=== PATIENT | female | born 1960 | race Two or more races ===

== ENCOUNTER → 2016-09-12 | Outpatient (CLI) | payer BC ==
--- NOTE | 2016-09-12 11:43 | KCIC ---
EXAM: Renal sonogram. HISTORY: Hematuria. TECHNIQUE: Sonographic imaging of the kidneys and bladder was performed. COMPARISON: None. FINDINGS: The right kidney measures 11.5 cm [id number] and the left kidney measures 11.8 cm [id number]. No solid or cystic renal lesion is seen. There is no hydronephrosis. The aorta is normal in caliber. The inferior vena cava is patent. The bladder is unremarkable. The ureteral jets are both seen. Incidental note is made of hepatic steatosis. IMPRESSION: 1. Sonographically unremarkable kidneys and bladder. 2. Hepatic steatosis. Electronically signed by: Sydnee Bueno MD (09/12/2016 11:40 AM)
== END | disposition home or self-care (01) ==
LOC: KCIC US 10:39
PROVIDERS: ATTEND Internal Medicine
DX: R31.9 Hematuria, unspecified (principal)
CPT/HCPCS: 76770

== ENCOUNTER → 2016-11-07 | Outpatient (CLI) | payer BC ==
--- NOTE | 2016-11-07 11:22 | KCIC ---
Pelvic ultrasound Clinical Indication:Pelvic pain. History of ovarian cyst. Hysterectomy.. . TRANSABDOMINAL SCAN No obvious findings in the region of the vaginal cuff. Ovaries not visualized. TRANSVAGINAL SCAN Uterus: Surgically absent. Bowel is identified in the region of the vaginal cuff. Right ovary: 2.9 cm long axis. Simple appearing cyst measures 19 mm long axis. Positive blood flow documented. Left ovary: 17 mm long axis. Positive blood flow documented. Small echogenic foci identified compatible with calcifications. Free fluid: None visualized. IMPRESSION: 1. Simple appearing right ovarian cyst. 2. Presumed calcifications in the left ovary. 3. Post hysterectomy. Electronically signed by: Negro Correa MD (11/07/2016 11:18 AM) [facility]
== END | disposition home or self-care (01) ==
LOC: KCIC US 09:02
PROVIDERS: ATTEND Internal Medicine
DX: R10.2 Pelvic and perineal pain (principal); N83.201 Unspecified ovarian cyst, right side; Z90.710 Acquired absence of both cervix and uterus
CPT/HCPCS: 76830; 76856

== ENCOUNTER → 2017-04-10 | Outpatient (CLI) | payer BC ==
--- NOTE | 2017-04-10 11:31 | KCIC ---
Bilateral digital screening mammogram History: Annual screening mammography Comparison: March 15, 2016, March 27, 2012 Findings: Breast Tissue Density B :There are scattered areas of fibroglandular density. Bilateral digital mammogram images are obtained with CAD. No suspicious masses, architectural distortion, or grouped microcalcifications are identified. Impression: Negative exam. Recommend screening mammogram in one year. BI-RADS Category 1: Negative. PQRS compliance statement - Patient information was entered into a reminder system with a target due date for the next mammogram. Electronically signed by: Lucía Brasher MD (04/10/2017 11:28 AM) [id number]
--- NOTE | 2017-04-10 11:57 | KCIC ---
Clinical Indication: Postmenopausal screening. Hyperthyroidism. Technique: Bone Densitometry was performed with dual photon absorption of the lumbar spine and proximal left femur. This is a baseline exam. Findings: Lumbar Spine: Bone density is 0.998 g/cm2 for L1-L4. T-Score is -0.4 and Z-score 0.9. Age-matched percentage is 111 %. Left Femur Total: Bone density is 0.862 g/cm2. T-Score is -0.7 and Z-score 0.2. Age-matched percentage is 102%. Impression: 1. Normal bone mineral density within the lumbar spine. 2. Normal bone mineral density in the left hip. Electronically signed by: Buzz Carter MD (04/10/2017 11:54 AM) [id number]
== END | disposition home or self-care (01) ==
LOC: KCIC DEXA 10:19
PROVIDERS: ATTEND Internal Medicine
DX: Z12.31 Encounter for screening mammogram for malignant neoplasm of breast (principal); Z13.820 Encounter for screening for osteoporosis; E05.90 Thyrotoxicosis, unspecified without thyrotoxic crisis or storm; Z78.0 Asymptomatic menopausal state
CPT/HCPCS: 77080; G0202; 77067

== ENCOUNTER → 2017-05-01 | Outpatient (CLI) | payer BC, MEDICARE | END | disposition home or self-care (01) | LOC: KCIC MRI 08:20 | DX: S43.431A Superior glenoid labrum lesion of right shoulder, initial encounter (principal); M12.811 Other specific arthropathies, not elsewhere classified, right shoulder; X58.XXXA Exposure to other specified factors, initial encounter; M25.411 Effusion, right shoulder; Y93.89 Activity, other specified; Y92.89 Other specified places as the place of occurrence of the external cause; Y99.8 Other external cause status | CPT/HCPCS: 73221 ==

== ENCOUNTER → 2018-04-23 | Outpatient (CLI) | payer BC ==
--- NOTE | 2018-04-23 12:08 | KCIC ---
Bilateral digital screening mammograms: Reason for examination: Routine screening. Comparison is made to previous studies dated 04/10/2017, 03/15/2016 and 04/14/2014. Interpretation was made with the benefit of CAD. The skin and nipples show no abnormalities. No abnormal axillary lymph nodes are seen. The breast parenchyma shows scattered fibroglandular density. (Breast density: Category B.) There continues be some asymmetric parenchyma at the 10:00 C position of the right breast which is stable. There are no new dominant masses, suspicious calcifications or architectural distortions. Impression: No evidence of malignancy. Recommend routine screening. BI-RADS Category 2: Benign. "Our facility is accredited by the [employer] Mammography [employer]." This patient's information has been entered into a reminder system for the patient to be notified with the results of her examination and a target date for the next mammogram. Electronically signed by: Teetee Santamaria MD (04/23/2018 12:04 PM) [id number]
== END | disposition home or self-care (01) ==
LOC: KCIC MAMMO 10:59
PROVIDERS: ATTEND Physician Assistant Surgical
DX: Z12.31 Encounter for screening mammogram for malignant neoplasm of breast (principal)
CPT/HCPCS: 77067

== ENCOUNTER → 2019-04-21 | Outpatient (CLI) | payer BC, MEDICARE ==
--- NOTE | 2019-04-21 13:34 | KCIC ---
Bilateral digital screening mammograms: Reason for examination: Routine screening. Comparison is made to previous studies dated 04/23/2018 and 04/10/2017. Interpretation was made with the benefit of CAD. The skin and nipples show no abnormalities. No abnormal axillary lymph nodes are seen. The breast parenchyma shows scattered fibroglandular density. (Breast density: Category B.) There continues to be some asymmetric parenchyma in the posterior lateral right breast which is stable. There are no new dominant masses, suspicious calcifications or architectural distortions. Impression: No evidence of malignancy. Recommend routine screening. BI-RADS Category 2: Benign. "Our facility is accredited by the [employer] Mammography Program." This patient's information has been entered into a reminder system for the patient to be notified with the results of her examination and a target date for the next mammogram. Electronically signed by: Teetee Santamaria MD (04/21/2019 1:31 PM) [id number]
== END | disposition home or self-care (01) ==
LOC: KCIC MAMMO 11:06
PROVIDERS: ATTEND Nurse Practitioner Gerontology
DX: Z12.31 Encounter for screening mammogram for malignant neoplasm of breast (principal)
CPT/HCPCS: 77067

== ENCOUNTER → 2020-02-03 | Outpatient (CLI) | payer BC, MEDICARE ==
--- NOTE | 2020-02-03 13:12 | KCIC ---
LUMBAR SPINE 2-3V History: Right sciatica Comparison: 06/06/2018 Findings: 3 views of the lumbar spine are submitted. There is again severe L5-S1 degenerative disc disease, minimally at L3-4 and L4-5. Lumbar vertebral body stature is maintained. There is negligible anterior spondylolisthesis at L5-S1. There is multilevel lumbar facet degenerative change. There has been cholecystectomy. Impression: 1. There is severe L5-S1 degenerative disc disease, minimally at L4-5 and L3-4. There is negligible anterior spondylolisthesis at L5-S1, multilevel lumbar facet degenerative change. Electronically signed by: Manuel Christensen MD (02/03/2020 1:09 PM) [facility]
--- NOTE | 2020-02-03 13:39 | KCIC ---
CT Abdomen and Pelvis without contrast History: Right flank pain, microscopic hematuria, possible urinary tract infection Technique: Noncontrast CT imaging was performed of the abdomen and pelvis. Multiplanar images are reviewed. Exposure: One or more of the following individualized dose reduction techniques were utilized for this examination: 1. Automated exposure control 2. Adjustment of the mA and/or kV according to patient size 3. Use of iterative reconstruction technique. Comparison: February 09, 2006 Findings: No urolithiasis or hydronephrosis is identified. There is a focus of hypodensity of the superior right kidney about 1 cm in size with density measurements more suggestive of cysts about 0 Hounsfield units. There is circumferential wall prominence of urinary bladder. Accurate evaluation of abdominal visceral organs is limited without intravenous contrast. There is no obvious abnormality of the spleen, liver, or pancreas. There has been cholecystectomy. There is no adrenal nodularity. Accurate evaluation of bowel is limited without oral contrast. There is no significant free air, free fluid, bowel dilatation. Normal caliber appendix is visualized without adjacent inflammatory change. There is fairly severe diverticulosis of the transverse through mid sigmoid colon. There is mild scattered plaque of the abdominal aorta and iliac arteries. There are several small nonspecific retroperitoneal nodes. There is severe L5-S1 degenerative disc disease with associated sclerotic endplate change. There is multilevel inferior thoracic degenerative disc disease. There is mild grade 1 anterior spondylolisthesis at L5-S1 at which there is facet degenerative change. There is moderate to severe narrowing of the left L5-S1 neural foramen part by disc osteophyte complex contacting the exiting left L5 nerve root. Impression: 1. No urolithiasis or hydronephrosis is identified. There is nonspecific circumferential prominence of urinary bladder jackson which can be seen with cystitis in the appropriate clinical setting, cannot exclude underlying bladder mass. However may be accentuated by incomplete distention. There is likely small superior right renal cyst. 2. There is fairly severe colonic diverticulosis. 3. There is advanced L5-S1 degenerative disc disease with associated sclerotic endplate change. Electronically signed by: Manuel Christensen MD (02/03/2020 1:35 PM) [facility]
== END ==
LOC: KCIC CT 12:28
PROVIDERS: ATTEND Nurse Practitioner Gerontology
DX: K57.30 Diverticulosis of large intestine without perforation or abscess without bleeding (principal); M47.816 Spondylosis without myelopathy or radiculopathy, lumbar region; M51.37 Other intervertebral disc degeneration, lumbosacral region
CPT/HCPCS: 72100; 74176

== ENCOUNTER → 2020-10-25 | Outpatient (CLI) | payer BC, MEDICARE ==
--- NOTE | 2020-10-25 09:50 | KCIC ---
Bilateral digital screening mammograms: Reason for examination: Routine screening. Comparison is made to previous studies dated back to 03/15/2016. Interpretation was made with the benefit of CAD. The skin and nipples show no abnormalities. No abnormal axillary lymph nodes are seen. The breast par enchyma shows scattered fibroglandular density. (Breast density: Category B.) There continues to be s ome nodular asymmetry in the dominant 9:00 C position of the right breast which is stable. There are no dominant masses, suspicious calcifications or architectural distortions. Impression: No evidence of malignancy. Recommend routine screening. BI-RADS Category 2: Benign. "Our facility is accredited by the [employer] Mammography Program." This patient's information has been entered into a reminder system for the patient to be notified wit h the results of her examination and a target date for the next mammogram. Electronically signed by: eTetee Santamaria MD (10/25/2020 9:47 AM) [id number]
== END ==
LOC: KCIC MAMMO 08:56
PROVIDERS: ATTEND Family Medicine
DX: Z12.31 Encounter for screening mammogram for malignant neoplasm of breast (principal)
CPT/HCPCS: 77067

== ENCOUNTER → 2021-07-13 | Outpatient (CLI) | payer BC, MEDICARE ==
--- NOTE | 2021-07-13 13:08 | KCIC ---
Study: XR KNEE _3 VIEWS_LT Indication: Primary osteoarthrosis. Comparison: None. Findings: Femorotibial compartment joint space height is maintained. Faint chondrocalcinosis mainly at the medi al femorotibial compartment. Tiny medial joint line and patellar osteophytes. Quadriceps insertion en thesophyte. Minimal joint fluid. No fracture or malalignment. Impression: 1. No acute osseous abnormality. 2. Minimal medial and patellofemoral compartment arthrosis. Maintained femorotibial compartment joint space height. 3. Minimal knee joint fluid. Faint chondrocalcinosis. Electronically signed by: YUKO WHITAKER MD (07/13/2021 1:05 PM) [id number]
== END ==
LOC: KCIC 08:07
PROVIDERS: ATTEND Family Medicine
DX: M11.262 Other chondrocalcinosis, left knee (principal); M25.762 Osteophyte, left knee; M17.12 Unilateral primary osteoarthritis, left knee
CPT/HCPCS: 73562